=== PATIENT | female | born 1985 | race African-American/Black ===

== ENCOUNTER 2016-11-07 19:15 | Emergency (ER) | payer MEDICAID, OTHER ==
[~2016-11-07] VITALS: Ht 162.6 cm; Wt 71.7 kg
[~2016-11-07 19:15] MED LIST: PREN-96 PO
[2016-11-08 02:52] VITALS: BP 134/76
== END 2016-11-08 05:13 | disposition left against medical advice (07) ==
LOC: ER 19:25
DX: G56.01 Carpal tunnel syndrome, right upper limb (principal); Z88.6 Allergy status to analgesic agent